=== PATIENT | female | born 2000 | race Two or more races ===

== ENCOUNTER 2023-09-22 17:23 | Emergency (ER) | payer BC, OTHER ==
[~2023-09-22] VITALS: Ht 160 cm; Wt 60.8 kg
[2023-09-22 18:15] VITALS: O2SAT 97
[2023-09-22 19:54] LABS: Basophils # (auto) 0 10 ^3/uL (0-0.2); Basophils % (auto) 0.2 % (0.0-2.0); Eosinophils # (auto) 0 10 ^3/uL (0-0.8); Eosinophils % (auto) 0.4 % (0.0-7.0); Hematocrit 44.5 % (36.0-46.0); Hemoglobin 14.7 g/dL (12.2-16.2); Lymphocytes # (auto) 3.3 10 ^3/uL (0.4-5.4); Lymphocytes % (auto) 27.9 % (10.0-50.0); Mean Corpuscular Hemoglobin 31.5 pg (28.0-32.0); Mean Corpuscular Hgb Conc. 33.1 g/dL (32.0-36.0); Monocytes # (auto) 1.2 10 ^3/uL (0-1.3); Monocytes % (auto) 9.8 % (0.0-12.0); Neutrophils # (auto) 7.4 10 ^3/uL (1.6-8.6); Neutrophils % (auto) 61.7 % (37.0-80.0); Red Blood Cells 4.68 10^6/uL (4.0-5.20); White Blood Cell 11.9 10^3/uL (4.4-10.8)
[2023-09-22 20:03] LABS: Alanine Aminotransferase 21 U/L (7-40); Albumin 5.3 g/dL (3.2-4.8); Alkaline Phosphatase 107 U/L (46-116); Anion Gap 12 (5-15); Aspartate Aminotransferase 27 U/L (13-40); BUN/Creatinine Ratio 18.1 (10.0-20.0); Blood Urea Nitrogen 13 mg/dL (9-23); Calcium 10.7 mg/dL (8.7-10.4); Carbon Dioxide 21 mmol/L (20-30); Chloride 106 mmol/L (98-107); Glucose 92 mg/dL (74-106); Lipase 24 U/L (12-53); Potassium 3.2 mmol/L (3.5-5.1); Sodium 139 mmol/L (136-145)
[2023-09-22 20:04] LABS: Bilirubin, Total 0.8 mg/dL (0.2-1.0); Total Protein 8.7 g/dL (5.7-8.2)
[2023-09-22 22:45] LABS: Urine Bacteria FEW /hpf (None Seen); Urine Blood 2+ /uL (Negative); Urine Clarity Clear (Clear); Urine Color Yellow (Yellow); Urine Mucus FEW (None Seen); Urine Protein, UAD 1+ (Negative); Urine Specific Gravity 1.033 (1.001-1.035); Urine Urobilinogen Normal (Negative); Urine WBC 2 /hpf (0 - 5)
[2023-09-22] MEDS ORDERED: ZOFR4T PO (23:02)
[2023-09-22] MEDS ORDERED: FAMO20TA10 PO (23:02)
[2023-09-22] MEDS: PANTOPRAZOLE 40 MG/10 ML VIAL INJ IV ONE (23:17)
[2023-09-22] MEDS: ONDANSETRON HCL 4 MG/2 ML VIAL IV ONE (23:17)
[2023-09-22 23:18] VITALS: BP 138/84; PULSE 91; RESP 22
[2023-09-22] MEDS: MORPHINE SULFATE 4 MG/ML SYR/VIAL IV ONE (23:18)
[2023-09-22] MEDS: LORazepam 0.5 MG TAB PO ONE (23:34)
[2023-09-22] MEDS: POTASSIUM CHL 20 Meq TABLET PO ONE (23:34)
[2023-09-22] MEDS: SODIUM CHLORIDE 0.9% 1,000 ML IV ONE (23:35)
[2023-09-23] MEDS: METOCLOPRAMIDE HCL 5MG/ml INJ 2ml VIAL IV ONE (00:56)
== END 2023-09-23 01:21 | disposition home or self-care (01) ==
LOC: ER 17:23
DX: K29.00 Acute gastritis without bleeding (principal); E87.6 Hypokalemia; R10.13 Epigastric pain; Z79.899 Other long term (current) drug therapy
CPT/HCPCS: 36415; 76705; 80053; 81001; 81025; 83690; 85025; 96361; 96374; 96375; 99285; C9113; J2270; J2405; J2765; J7030